=== PATIENT | female | born 1990 | race Caucasian/White ===

== ENCOUNTER 2020-10-25 12:42 | Emergency (ER) | payer OTHER, SELFPAY ==
[2020-10-25 13:20] VITALS: BP 120/69; PULSE 101; RESP 14; TEMP 36.6; O2SAT 99; BMI 32.5
--- NOTE | 2020-10-25 13:40 | HMH.EDUTC ---
[facility] [place] Disposition Clinical Impression: Exposure to COVID-19 virus Disposition: Home, Self-Care Condition on Discharge: Good Instructions: DI for COVID-19 (Suspected or Confirmed ), Preventing the Spread of Coronavirus Discharge Instructions Additional Instructions: self isolate until test results known increase fluids call oncology physician in am inform of symptoms if symptoms worsen return or be seen in ed Referrals: PCP,No [Primary Care Provider] - Time of Disposition: 13:45 Medical Decision Making - Ricardo Inquiry Pt receiving controlled substance: No Orders (Tests/Meds): ORDERS Category Date Time Status Covid-19 Nasal PCR ([facility]) Routine Lab 10/25/20 13:15 Received [facility] [place] HPI - General Chief complaint: [facility]gent [facility] Stated complaint: covid exposure Time Seen by Provider: 10/25/20 13:40 Mode of Arrival: Ambulatory Source of Information: Patient Limitations: No Limitations - History of Present Illness Provider Complaint: 30 yr old female presents for loss of taste and smell and nasal congestion. pt states she is 29 weeks . Pt states symptoms for two days. pt states no other symtpoms, pt states she was exposed to covid [facility] History - Hepatitis A Screen Attestation statement:: This patient has been screened for Hepatitis A risk factors. I have reviewed the patient's past medical history: No ROS Obtained: Yes Systems reviewed as appropriate & no additional complaints - Constitutional Constitutional: Reports system reviewed and no additional complaints, except as docu, Denies body ache, Denies fatigue, Denies fever(s) - Eyes Eyes: Reports system reviewed and no additional complaints, except as docu - ENT Ears, Nose, Mouth, and Throat: Reports system reviewed and no additional complaints, except as docu, Reports as per HPI, Reports nasal congestion, Reports other - Cardiovascular Cardiovascular: Reports system reviewed and no additional complaints, except as docu, Denies chest pain - Respiratory Respiratory: Yes system reviewed and no additional complaints, except as docu, No change in phlegm color - Gastrointestinal Gastrointestingal: Reports: system reviewed and no additional complaints, except as docu. Denies: nausea, vomiting - Genitourinary Female Genitourinary: Reports system reviewed and no additional complaints, except as docu - Musculoskeletal Musculoskeletal: Reports system reviewed and no additional complaints, except as docu, Denies joint pain - Integumentary/Breasts Skin/Breast: Reports system reviewed and no additional complaints, except as docu, Denies rash - Neurologic Neurologic: Reports system reviewed and no additional complaints, except as docu, Denies focal weakness - Endocrine Endocrine: Reports system reviewed and no additional complaints, except as docu, Denies fatigue - Hematologic/Lymphatic Henatologic/Lymphatic: Reports system reviewed and no additional complaints, except as docu, Denies easy bruising - Allergic/Immunologic Allergic/Immunologic: Reports system reviewed and no additional complaints, except as docu, Denies itchy eyes Physical Exam - General General appearance: alert, in no apparent distress - Head Head exam: atraumatic, normocephalic, normal inspection - Eye Eye exam: Present: normal appearance, PERRL - ENT ENT exam: Present: normal exam, normal oropharynx, mucous membranes moist, TM's normal bilaterally, normal external ear exam - Neck Neck exam: Present: normal inspection, full ROM, trachea midline. Absent: meningismus, lymphadenopathy - Chest Chest inspection: Present: normal inspection, symmetric chest wall rise. Absent: tenderness - Respiratory Respiratory exam: Present: normal lung sounds bilaterally. Absent: respiratory distress - Cardiovascular Cardiovascular exam: Present: regular rate, normal rhythm. Absent: JVD - Abdominal Exam Abdominal exam: Present: soft, normal bowel sounds. Absent: distention,
[2020-10-25 13:46] VITALS: BP 120/69; PULSE 101; RESP 14; TEMP 36.7; O2SAT 99
--- NOTE | 2020-10-25 20:33 | PC.NURSE ---
PATIENT NOTIFIED OF POSITIVE COVID RESULTS
== END 2020-10-25 13:51 | disposition home or self-care (01) ==
PROVIDERS: Emergency Provider Nurse Practitioner Family
DX: U07.1 COVID-19 (principal); Z3A.29 29 weeks gestation of pregnancy
CPT/HCPCS: 99202; G0463; U0003

== ENCOUNTER 2023-11-30 13:49 | Outpatient (CLI) | payer OTHER, SELFPAY ==
--- NOTE | 2023-11-30 13:52 | US_ITS ---
PROCEDURE: US TRANSVAGINAL CLINICAL INDICATION: abnormal uterine bleeding COMPARISON: No exams were available for comparison FINDINGS: Transvaginal sonographic images of the pelvis were obtained. UTERUS: 7.2cm x 4.1cmx 3.6 cm anteverted with a combined endometrial thickness of 4.2mm. A scar is seen. LEFT OVARY: 2.4cmx2.4cmx1.4cm with a volume of 4.1ml. There are several small follicles in the left ovary. RIGHT OVARY: 2.4cmx 1.7 cmx2.0cm with a volume of 4.2ml. There are multiple small follicles within the right ovary. Both ovaries are seen and appear normal. Doppler flow to both ovaries are seen. There is no fluid in the cul-de-sac. IMPRESSION: 1. Anteverted uterus normal in size shape and size with a thin endometrium. A scar is seen. 2. Both ovaries are seen and appear normal. 3. There are multiple small follicles in the right ovary and several small follicles in the left ovary. 4. No fluid in the cul-de-sac. Dictated by: Jadon Carpio MD 11/30/2023 16:35 Jadon Carpio MD in [place] 11/30/2023 16:35
== END 2023-11-30 23:59 ==
LOC: RAD 13:50
PROVIDERS: PCP Obstetrics & Gynecology; Visit Provider Obstetrics & Gynecology
DX: N93.9 Abnormal uterine and vaginal bleeding, unspecified (principal)
CPT/HCPCS: 76830

== ENCOUNTER 2024-01-30 15:58 | Outpatient (CLI) | payer OTHER, SELFPAY | END 2024-01-30 23:59 | LOC: LAB 15:58 | PROVIDERS: Visit Provider Obstetrics & Gynecology | DX: R53.83 Other fatigue (principal) | CPT/HCPCS: 36415; 84443 ==

== ENCOUNTER 2024-10-08 14:14 | Outpatient (CLI) | payer OTHER, SELFPAY ==
--- NOTE | 2024-10-08 14:17 | US_ITS ---
PROCEDURE INFORMATION: Exam: US Right Breast, Complete Exam date and time: 10/08/2024 2:22 PM Age: 34 years old Clinical indication: Palpable area of concern in the right breast 4 o'clock axis 11 cm from the nipple. TECHNIQUE: Imaging protocol: Complete ultrasound of all four quadrants of the right breast and the retroareolar regions, including ultrasound of the axilla when performed. COMPARISON: No relevant prior studies available. FINDINGS: ULTRASOUND: Breast ultrasound findings: Complete scanning of the right breast is performed. There is no suspicious mass. There is a dermal cyst, likely a sebaceous cyst in the 4 o'clock axis, 11 cm from the nipple at the palpable area of concern measuring 0.5 x 0.3 x 0.4 cm. No suspicious shadowing or distortion. No fluid collection. No axillary adenopathy. IMPRESSION: Probable sebaceous cyst in the right breast. Continued clinical monitoring is recommended. Repeat imaging is recommended if the finding changes in size or becomes more concerning clinically. Further evaluation of a palpable abnormality should be based on clinical grounds regardless of radiographic findings or lack thereof. ASSESSMENT: BI-RADS Category 2: Benign.
== END 2024-10-08 23:59 | disposition home or self-care (01) ==
LOC: RAD 14:15
PROVIDERS: Visit Provider Obstetrics & Gynecology
DX: N60.01 Solitary cyst of right breast (principal)
CPT/HCPCS: 76641

== ENCOUNTER 2025-02-04 06:50 | Outpatient (CLI) | payer OTHER, SELFPAY ==
[2025-02-04 08:45] LABS: 25-OH Vitamin D, Total 44.1 ng/mL (30-100)
[2025-02-05 08:42] LABS: Estradiol 20.4 pg/mL (.); Insulin Level Total 10.3 uIU/mL (2.6-24.9); LH 8.7 mIU/mL (.); Progesterone 0.6 ng/mL (.); Testosterone,Total 56 ng/dL (8-60)
== END 2025-02-04 23:59 | disposition home or self-care (01) ==
LOC: LAB 06:51
PROVIDERS: Visit Provider Obstetrics & Gynecology
DX: R61 Generalized hyperhidrosis (principal); N93.9 Abnormal uterine and vaginal bleeding, unspecified; Z68.31 Body mass index [BMI] 31.0-31.9, adult; E66.9 Obesity, unspecified
CPT/HCPCS: 36415; 82306; 82670; 83001; 83002; 83525; 84144; 84403; 84443

== ENCOUNTER 2025-10-01 09:37 | Emergency (ER) | payer OTHER, SELFPAY ==
[2025-10-01 09:42] VITALS: BP 146/87; PULSE 91; O2SAT 100
[2025-10-01 09:43] VITALS: BP 146/87; PULSE 87; RESP 16; TEMP 36.8; O2SAT 100; BMI 28.3
--- NOTE | 2025-10-01 10:01 | ED_ITS ---
<Statement entered by Félix Ryan MD - 10/01/25 14:37> Félix Ryan MD: I was consulted by the YOLANDE, and we discussed the complexity of the problems being addressed. I approved the treatment and management plan for this patient's care in the emergency department, thus performing a substantive portion of the medical decision making. Employee health will follow-up on the labs and need for postexposure prophylaxis. Discharge Plan Disposition Chief Complaint: Wound/Laceration Prescriptions Prescriptions: No Action desog-e.estradiol/e.estradiol [Kariva (28)] 0.15-0.02 mgx21 /0.01 mg x 5 tablet 1 tab PO DAILY Patient Comments: TAKE 1 TABLET BY MOUTH EVERY DAY Zepbound 2.5 mg/0.5 mL pen injector 2.5 mg SQ WEEKLY 28 Days Qty: 2 0RF Rx Instructions: for 4 weeks sulfamethoxazole-trimethoprim [Bactrim DS] 800-160 mg tablet 1 tab PO BID 10 Days Qty: 20 0RF cephalexin 500 mg capsule 500 mg PO BID 10 Days Qty: 20 0RF Referrals Follow up/Referrals: Debo Santillan APRN [Primary Care Provider, Medical] - See instructions Instructions Patient Instructions: DI for Laceration Repair Print Language Print Language: Swedish Discharge ED Provider: Félix Ryan General Adult HPI General Chief complaint: Wound/Laceration Stated complaint: WC-09/30/25- exposure, blade Time Seen by Provider: 10/01/25 09:44 Mode of Arrival: Ambulatory Source of Information: Patient Description of Symptoms (Recalled from ER Triage Doc. by RN): patient states she was working a surgery case lastnight when she cut her right index finger on a 20 blade that was unused. History of Present Illness HPI narrative: 35-year-old female presents to the ED today after working in a surgery case last night when she was cleaning a scalpel blade that was unused but she had blood on her gloves and it caught her so she wants to be safe not sorry. Related Data Home Medications ?Medication ?Instructions ?Recorded ?Confirmed desogestrel-e.estradiol 0.15 1 tab PO DAILY 11/28/23 1 10/27/23 mg-0.02 mg(21)/e.estrad 0.01 mg(5) tablet (Kariva (28)) Previous Rx's ?Medication ?Instructions ?Recorded tirzepatide (weight loss) 2.5 2.5 mg (0.5 mL) SQ WEEKL Y 4 weeks 08/29/24 mg/0.5 mL subcutaneous pen #2 mL injector (Zepbound) cephalexin 500 mg capsule 500 mg PO BID 10 days #20 ca ps 10/07/24 sulfamethoxazole 800 1 tab PO BID 10 days #20 tab s 10/07/24 mg-trimethoprim 160 mg tablet (Bactrim DS) Allergies Allergy/AdvReac Type Severity Reaction Status Date / Time No Known Allergies Allergy Verified 08/27/24 10:45 [facility] Disclaimer: The information contained in this section may have been updated after the patient was seen, as this information can be updated by other users. Medical History (Updated 02/03/25 @ 15:15 by Lizett Rodriguez DO) Abnormal uterine bleeding Night sweats Weight gain Surgical History History of delivery History of cholecystectomy Family History Other No significant family history Social History Smoking Status: Current every day smoker alcohol intake: never current occupational status: other Travel in the last 8 weeks?: None Have you lived/traveled outside [place] in past 30 days?: No Contact w/someone who lives/traveled outside US past 30 days?: No Exposure to someone with infectious disease in past 14 days?: No Do you have a fever (greater than 100.4 F or 38 C)?: No Have you tested positive for COVID-19?: No Exposed to someone with COVID-19 in past 14 days?: No Do you have a sore throat?: No Do you have a cough?: No Do you have any weakness?: No Do you have any diarrhea?: No Are you experiencing any unusual bleeding?: No Do you have any muscle aches/pain?: No Do you have any abdominal pain?: No Are you experiencing loss of taste or smell?: No Other Medical History Have you received the Flu Vaccine for this season: No Have you received the Pneumonia Vaccine: No ROS Obtained: Yes Systems reviewed as appropriate & no additional complaints except as documented Constitutional Constitutional: Reports as per HPI Physical Exam General General appearance: alert and in no apparent distress Head Head exam: normocephalic Eye Eye exam: Present PERRL and EOMI ENT ENT exam: Present normal oropharynx and mucous membranes moist Neck Neck exam: Present trachea midline Respiratory Respiratory exam: Present normal lung sounds bilaterally Cardiovascular Cardiovascular exam: Present regular rate, normal rhythm, normal heart sounds, +S1 and +S2 Extremities Exam Extremities exam: Present full ROM and normal capillary refill Neurological Exam Neurological exam: Present alert and oriented X3 Skin Skin exam: Present warm, dry and other (Small laceration on her right hand) Medical Decision Making Medical Records Screening: Per USPSTF and CDC recommendations, given the prevalence of disease in our region, it is our hospital?s policy to screen for HIV and viral Hepatitis for all patients aged 18 and over and those with ongoing risk factors. Ricardo Inquiry Pt receiving controlled substance: No Ricardo was queried for this patient: No Vital Signs: 10/01/25 09:42 10/01/25 09:43 Temperature 98.2 F Temperature Source Oral Pulse Rate 91 H Pulse Rate [Right Radial] 87 Respiratory Rate 16 Blood Pressure 146/87 H Blood Pressure [Right Arm] 146/87 H Blood Pressure Mean [Right Arm] 106 Blood Pressure Source [Right Arm] Automatic Cuff Blood Pressure Position [Right Arm] Supine 02 Sat by Pulse Oximetry 100 100 Oxygen Delivery Method Room Air Orders (Tests/Meds): ORDERS Category Date Time Status CBC w/Auto Diff [Complete Blood Count Auto Diff] Stat Lab 10/01/25 09:45 Ordered Drug Screen,Urine Stat Lab 10/01/25 09:45 Ordered HBsAg Screen Stat Lab 10/01/25 09:45 Ordered HCV [Hepatitis C Ab Qual. W/ RFX] Stat Lab 10/01/25 09:45 Ordered HIV Combo Stat Lab 10/01/25 09:45 Ordered HIV Combo Stat Lab 10/01/25 09:50 Ordered Hepatitis B Surf Ab Quant Stat Lab 10/01/25 09:45 Ordered Hepatitis C Ab Qual. W/ RFX Stat Lab 10/01/25 09:50 Ordered Liver Panel Stat Lab 10/01/25 09:45 Ordered PT INR [Prothrombin Time INR] Stat Lab 10/01/25 09:45 Ordered PTT [Activated Partial Thrombo Time] Stat Lab 12/10/25 09:45 Ordered Medical Decision Narrative: patient is a 35-year-old female presenting to the emergency department for evaluation of cut after cleaning surgical items after a light case yesterday. Patient is hemodynamically stable and nontoxic-appearing upon arrival, afebrile. Differential diagnosis includes bloodborne pathogen. Workup will be conducted with hematologic labs. She is up to date on her tetanus. We used the blood pathogen policy to decide orders. She will not get the PEP based on her and the other patient risk factors. Patient will follow-up with [facility]. Critical Care Critical Care Time Critical Care Time: No
--- NOTE | 2025-10-01 10:06 | PC.NURSE ---
lab in patient room sticking patient.
[2025-10-01 10:17] LABS: Hematocrit 36.5 % (37.0-47.0); Hemoglobin 12.4 g/dL (12.2-16.2); Immature Granulocytes % 0.3 %; Mean Corpuscular HGB Conc 34.0 g/dL (31.8-35.4); Mean Corpuscular Hemoglobin 30.1 pg (27.0-31.2); Mean Corpuscular Volume 88.6 fl (81-99); Nucleated Red Blood Cells % 0 %; Platelet Count 339 K/mm3 (142-424); Red Blood Count 4.12 M/mm3 (4.20-5.40); Red Cell Distribution Width-SD 38.4 fL; White Blood Count 6.9 K/mm3 (4.8-10.8)
[2025-10-01 10:32] LABS: Activated Partial Thrombo Time 29.9 seconds (22.8-30.6); INR 0.97 (0.9-1.1); Prothrombin Time 10.8 seconds (10.1-12.5)
[2025-10-01 10:48] LABS: Alanine Aminotransferase 31 U/L (12-78); Albumin Level 4.9 g/dl (3.5-5.0); Alkaline Phosphatase 69 U/L (38-126); Aspartate Amino Transferase 30 U/L (14-36); Bilirubin,Direct 0.2 mg/dl (0.0-0.4); Bilirubin,Indirect 0.3 mg/dL (0.0-0.9); Bilirubin,Total 0.5 mg/dl (0.2-1.3); Bilirubin,Unconjugated 0.4 mg/dL (0.0-1.1); Total Protein,Serum 7.9 g/dl (6.3-8.2)
[2025-10-01 10:58] VITALS: BP 121/83; PULSE 72; RESP 18; TEMP 36.7; O2SAT 96
[2025-10-01 12:13] LABS: Hepatitis C Ab Qual. W/ RFX NEGATIVE (Negative)
[2025-10-01 12:16] LABS: Hepatitis C Ab Qual. W/ RFX NEGATIVE (Negative)
[2025-10-02 06:33] LABS: Hepatitis B Surface Antigen Negative (Negative)
== END 2025-10-01 10:59 | disposition home or self-care (01) ==
PROVIDERS: Emergency Provider Emergency Medicine; PCP Nurse Practitioner
DX: S61.210A Laceration without foreign body of right index finger without damage to nail, initial encounter (principal); W26.8XXA Contact with other sharp object(s), not elsewhere classified, initial encounter; Z77.21 Contact with and (suspected) exposure to potentially hazardous body fluids
CPT/HCPCS: 80076; 85025; 85610; 85730; 86706; 86803; 87340; 87389; 99282; 99283